=== PATIENT | female | born 1975 | race Hispanic/Latino ===

== ENCOUNTER 2021-07-04 14:51 | Inpatient (IN) | payer SELFPAY ==
[~2021-07-04 14:51] MED LIST: Iopamidol 370 76% 100 ML VIAL ONE; Magnevist 469MG/ML 20 ML VIAL ONE
[2021-07-04 15:58] LABS: #Basophils 0.1 thou/uL (0.0-0.2); #Eosinphils 0.7 thou/uL (0.0-0.7); #Lymphocytes 2.8 thou/uL (1.20-3.40); #Monocytes 0.8 thou/uL (0.11-0.59); #Neutrophils 7.1 thou/uL (1.40-6.50); %Basophils 0.6 % (0.0-1.0); %Lymphocytes 24.7 % (21.0-51.0); %Monocytes 6.8 % (0.0-10.0); %Neutrophils 61.9 % (42.0-75.0); Hemoglobin 10.3 g/dL (12.0-16.0); Mean Corpuscular HGB CONC 30.7 g/dL (32.0-36.0); Mean Corpuscular Hemoglobin 19.1 pg (27.0-31.0); Mean Corpuscular Volume 62.3 fL (78.0-98.0); Mean Platelet Volume 9.8 fL (7.4-10.4); Platelet Count 483 thou/uL (130-400); RBC Distribution Width 15.6 % (11.5-14.5); Red Blood Cell (RBC) Count 5.39 mill/uL (4.20-5.40); White Blood Cell (WBC) Count 11.5 thou/uL (4.8-10.8)
[2021-07-04 16:13] LABS: ALT (SGPT) 23 U/L (8-55); AST (SGOT) 18 U/L (5-34); Albumin 4.3 g/dL (3.5-5.0); Alkaline Phosphatase 71 U/L (40-110); Anion Gap 13 mmol/L (10-20); BUN (Urea Nitrogen) 10 mg/dL (7.0-18.7); Bilirubin, Total 0.2 mg/dL (0.2-1.2); Calc. Creatinine Clearance 0 mL/min (70-130); Calcium 9.4 mg/dL (7.8-10.44); Carbon Dioxide 22 mmol/L (22-29); Chloride 103 mmol/L (98-107); Globulin 4.4 g/dL (2.4-3.5); Glucose 92 mg/dL (70-105); Protein, Total 8.7 g/dL (6.0-8.3); Sodium 134 mmol/L (136-145)
[2021-07-04 16:16] LABS: Anisocytosis SLIGHT = 6-15 cells (100X) (0-5/hpf); Hypochromia SLIGHT = 6-15 cells (100X) (0-5/hpf); MDiff Complete? YES; Microcytosis SLIGHT = 6-15 cells (100X) (0-5/hpf); Ovalocytes SLIGHT = 2-5 cells (100X) (0-1/hpf); Platelet Morphology Comment Appears Increased; Polychromasia SLIGHT = 2-3 cells (100X) (0-2/hpf); Reflex for Review?? YES; Stomatocytes SLIGHT = 2-5 cells (100X) (0-1/hpf)
[2021-07-04] MEDS ORDERED: Metoclopramide 10 MG/10 ML UDCUP ONE (18:06)
[2021-07-04] MEDS ORDERED: Ketorolac Tromethamine 30 MG/ML VIAL ONE (18:06)
[2021-07-04] MEDS ORDERED: Metoclopramide HCl 10 MG/2 ML VIAL ONE (18:07)
[2021-07-04] MEDS ORDERED: methylPREDNISolone Sod Succ 1 GM in Sodium Chloride 0.9% 250 ML 250 ML IVPB SCH (20:00)
[2021-07-04] MEDS ORDERED: Ondansetron PF 4 MG/2 ML Vial IVP PRN (21:15)
[2021-07-04] MEDS ORDERED: Acetaminophen 325 MG TAB PO PRN (21:15)
[2021-07-04] MEDS ORDERED: Ondansetron ODT 4 MG TAB SL PRN (21:15)
[2021-07-04] MEDS ORDERED: Acetaminophen 650 MG Suppository PR PRN (21:56)
[2021-07-04 22:27] VITALS: BMI 33.4
[2021-07-05 00:10] LABS: Iron 17 ug/dL (50-170); Iron Binding Capacity, Total 551 mcg/dL (265-497)
[2021-07-05] MEDS ORDERED: Iron, Sodium Ferric Gluconate 250 MG in Sodium Chloride 0.9% 250 ML 250 ML IVPB SCH (01:00)
[2021-07-05 05:43] LABS: #Eosinphils 0.2 thou/uL (0.0-0.7); #Monocytes 0.1 thou/uL (0.11-0.59); #Neutrophils 6.3 thou/uL (1.40-6.50); %Eosinophils 2.3 % (0.0-10.0); %Lymphocytes 12.9 % (21.0-51.0); %Neutrophils 83.8 % (42.0-75.0); Hemoglobin 10.4 g/dL (12.0-16.0); Mean Corpuscular HGB CONC 31.2 g/dL (32.0-36.0); Mean Corpuscular Hemoglobin 19.7 pg (27.0-31.0); Mean Corpuscular Volume 63.1 fL (78.0-98.0); Platelet Count 412 thou/uL (130-400); RBC Distribution Width 15.6 % (11.5-14.5); Red Blood Cell (RBC) Count 5.29 mill/uL (4.20-5.40); White Blood Cell (WBC) Count 7.5 thou/uL (4.8-10.8)
[2021-07-05 06:19] LABS: Anion Gap 12 mmol/L (10-20); BUN (Urea Nitrogen) 17 mg/dL (7.0-18.7); Calc. Creatinine Clearance 95 mL/min (70-130); Calcium 9.3 mg/dL (7.8-10.44); Carbon Dioxide 20 mmol/L (22-29); Chloride 107 mmol/L (98-107); Glucose 157 mg/dL (70-105); Potassium 4.4 mmol/L (3.5-5.1); Sodium 135 mmol/L (136-145)
[2021-07-05] MEDS ORDERED: FLU VACC QS2021-22(6MOS UP)/PF 60 MCG/0.5 ML SYRINGE IM ONE (09:00)
[2021-07-05] MEDS: Enoxaparin Sodium 40 MG/0.4 ML SYRINGE SC SCH (09:11)
[2021-07-05] MEDS ORDERED: Vancomycin 1 GM in Premix Bag 1 BAG IVPB SCH (11:00)
[2021-07-05] MEDS ORDERED: cefTRIAXone\\ROCEPHIN 1 GM in Sodium Chloride 0.9% 100 ML IVPB SCH (12:00)
[2021-07-05] MEDS: methylPREDNISolone Sod Succ 1 GM in Sodium Chloride 0.9% 250 ML 250 ML IVPB SCH (12:27)
[2021-07-05 13:15] LABS: SARS-CoV-2 PCR by NAA Not Detected (NotDetected)
[2021-07-05] MEDS ORDERED: Ferrous Sulfate 325 MG TAB PO SCH (14:30)
[2021-07-05 15:02] LABS: Bacteria/HPF 4+ HPF (None Seen); Bilirubin Negative (Negative); Blood, Urine Trace (Negative); Clarity Turbid (Clear); Glucose, Urine (Dipstick) 50 mg/dL (Negative); Ketone, Urine Trace mg/dL (Negative); Leukocyte 500 Leu/uL (Negative); Nitrite Negative (Negative); Protein, Urine (Dipstick) 20 mg/dL (Neg-Trace); RBC/HPF 0-3 HPF (0-3); Urobilinogen Normal mg/dL (Less than 2); WBC/HPF Greater than 50 HPF (0-3); pH, Urine 5.5 (5.0-9.0)
[2021-07-05 15:04] LABS: Urine Culture Reflex No No
[2021-07-05] MEDS: cefTRIAXone\\ROCEPHIN 1 GM in Sodium Chloride 0.9% 100 ML IVPB SCH (15:18)
[2021-07-05] MEDS: Ferrous Sulfate 325 MG TAB PO SCH (17:02)
[2021-07-05] MEDS: Vancomycin 1 GM in Premix Bag 1 BAG IVPB SCH (17:03)
[2021-07-05] MEDS ORDERED: methylPREDNISolone Sod Succ 1 GM in Sodium Chloride 0.9% 250 ML 250 ML IVPB SCH (21:00)
[2021-07-05] MEDS: Acetaminophen 325 MG TAB PO PRN (21:11)
[2021-07-06] MEDS: Vancomycin 1 GM in Premix Bag 1 BAG IVPB SCH ×2 (06:19→18:22)
[2021-07-06 09:02] LABS: Hemoglobin A1c 5.4 % (4.0-6.0)
[2021-07-06] MEDS ORDERED: Iopamidol 370 76% 100 ML VIAL ONE (09:41)
[2021-07-06] MEDS: Ferrous Sulfate 325 MG TAB PO SCH ×2 (10:15→18:23)
[2021-07-06] MEDS: Enoxaparin Sodium 40 MG/0.4 ML SYRINGE SC SCH (10:42)
[2021-07-06] MEDS: methylPREDNISolone Sod Succ 1 GM in Sodium Chloride 0.9% 250 ML 250 ML IVPB SCH (10:43)
[2021-07-06 10:52] LABS: INR-International Normal Ratio 1.1; PTT 28.2 sec (22.9-36.1); Prothrombin Time 14.5 sec (12.0-14.7)
[2021-07-06] MEDS ORDERED: Sodium Chloride 0.9% 500 ML IV SCH (11:00)
[2021-07-06 11:28] LABS: HIV (1/2) Antibody/Antigen Non-Reactive (NonReactive)
[2021-07-06 12:30] LABS: ANA Symphony (Qualitative) Negative (Negative); ANA Symphony (Quantitative) 0.3 Ratio (< 0.7 Negative); dsDNA IgG Antibody 0.9 IU/mL (<10 Negative)
[2021-07-06 13:23] LABS: Bilirubin Negative (Negative); Blood, Urine Trace (Negative); Clarity Turbid (Clear); Glucose, Urine (Dipstick) Normal (Negative); Ketone, Urine Negative (Negative); Leukocyte 500 Leu/uL (Negative); Nitrite Negative (Negative); Protein, Urine (Dipstick) 20 mg/dL (Neg-Trace); RBC/HPF 0-3 HPF (0-3); Specific Gravity, Urine 1.032 (1.002-1.036); Urobilinogen Normal mg/dL (Less than 2)
[2021-07-06 13:28] LABS: Syphilis Antibody Nonreactive (Nonreactive); Syphilis Antibody Index 0.04 S/CO (<1.00 Non-Reactive)
[2021-07-06 13:31] LABS: Bacteria/HPF 2+ HPF (None Seen); Urine Culture Reflex No No
[2021-07-06 15:18] LABS: CSF, Glucose 62 mg/dl (40-70); CSF, Protein 29 mg/dL (15-40)
[2021-07-06 16:13] LABS: CSF Source CSF; Clarity Clear (Clear); Tube # 4
[2021-07-06] MEDS: cefTRIAXone\\ROCEPHIN 1 GM in Sodium Chloride 0.9% 100 ML IVPB SCH (16:20)
[2021-07-07] MEDS: Vancomycin 1 GM in Premix Bag 1 BAG IVPB SCH (05:42)
[2021-07-07] MEDS ORDERED: PROPOFOL 20 ML ONE (08:13)
[2021-07-07] MEDS: Ferrous Sulfate 325 MG TAB PO SCH ×2 (10:35→18:09)
[2021-07-07] MEDS ORDERED: AcetaZOLAMIDE 250 MG TAB PO SCH (11:30)
[2021-07-07 11:57] LABS: PTT 24.6 sec (22.9-36.1); Prothrombin Time 13.6 sec (12.0-14.7)
[2021-07-07 11:58] LABS: D-Dimer Test 2.23 *mcg/mL (0.27-0.43)
[2021-07-07 12:18] LABS: Factor VIII Test 369.1 % ACTIVE (56-157)
[2021-07-07] MEDS: Acetaminophen 325 MG TAB PO PRN (12:39)
[2021-07-07] MEDS: cefTRIAXone\\ROCEPHIN 1 GM in Sodium Chloride 0.9% 100 ML IVPB SCH (15:32)
[2021-07-07 16:28] LABS: Vitamin B12 Greater than 2000 pg/mL (211-911)
[2021-07-07] MEDS: AcetaZOLAMIDE 250 MG TAB PO SCH (20:40)
[2021-07-08] MEDS ORDERED: predniSONE 20 MG TAB PO SCH (07:45)
[2021-07-08 07:55] VITALS: BP 115/67; TEMP 98.4
[2021-07-08] MEDS ORDERED: Cefdinir 300 MG CAP PO SCH ×2 (09:15→21:00)
[2021-07-08] MEDS: AcetaZOLAMIDE 250 MG TAB PO SCH (09:39)
[2021-07-08] MEDS: Ferrous Sulfate 325 MG TAB PO SCH (09:39)
[2021-07-10 17:11] LABS: Cardiolipin IgA Ab 2.8 APL-U/mL (<14 Negative); Cardiolipin IgG Ab 1.7 GPL-U/mL (<10 Negative); Cardiolipin IgM Ab 2.7 MPL-U/mL (<10 Negative); EliA APS New Method **** NEW METHOD ****
[2021-07-11 15:15] LABS: Cytoplasmic (C-ANCA) <1:20 titer (Neg:<1:20); Myeloperoxidase AutoAbs <9.0 U/mL (0.0-9.0); Perinuclear (P-ANCA) <1:20 titer (Neg:<1:20); Proteinase-3 AutoAbs Less than 3.5 U/mL (0.0-3.5)
[2021-07-12 16:15] LABS: CSF IgG Index 0.6 (0.0-0.7); CSF IgG Synthesis Rate -1.5 mg/day (-9.9 TO +3.3); IgG/Alb CSF 0.23 (0.00-0.25)
[2021-07-12 19:37] LABS: Methylmalonic Acid 128 nmol/L (0-378)
[2021-07-13 10:29] LABS: Protein C Activity 103 % (78-152)
[2021-07-13 12:46] LABS: HEX PHOS LA Tube 1 35.3 SEC; HEX PHOS LA Tube 2 33.6 SEC; Hexagonal Phospholipid Neut 1.7 SEC (0-8.0)
== END 2021-07-08 12:33 | disposition home or self-care (01) | DRG 125 ==
LOC: ERS 14:51 → NEURO 20:43 → INTOOBSV 20:43 → OBSVTOIN 07-05 17:58
PROVIDERS: ADMIT Student in an Organized Health Care Education/Training Program; ATTEND Internal Medicine
PROC: 009U3ZX Drainage of Spinal Canal, Percutaneous Approach, Diagnostic (ICD-10-PCS; principal; 2021-07-06)
PROC: B01B1ZZ Fluoroscopy of Spinal Cord using Low Osmolar Contrast (ICD-10-PCS; 2021-07-06)
PROC: B24BZZ4 Ultrasonography of Heart with Aorta, Transesophageal (ICD-10-PCS; 2021-07-08)
DX: H35.63 Retinal hemorrhage, bilateral (principal); H46.9 Unspecified optic neuritis; N39.0 Urinary tract infection, site not specified; E87.1 Hypo-osmolality and hyponatremia; Z20.822 Contact with and (suspected) exposure to COVID-19; Z23 Encounter for immunization; D50.9 Iron deficiency anemia, unspecified; N92.0 Excessive and frequent menstruation with regular cycle; R70.0 Elevated erythrocyte sedimentation rate; I70.0 Atherosclerosis of aorta; I08.1 Rheumatic disorders of both mitral and tricuspid valves; Z79.899 Other long term (current) drug therapy; Z79.52 Long term (current) use of systemic steroids
CPT/HCPCS: 36415; 62270; 70450; 70496; 70498; 70544; 70553; 71045; 71275; 80048; 80053; 81001; 81374; 82040; 82042; 82607; 82728; 82746; 82784; 82945; 83036; 83090; 83520; 83540; 83550; 83916; 83921; 84157; 84443; 84484; 85025; 85060; 85240; 85300; 85303; 85305; 85307; 85379; 85598; 85610; 85652; 85730; 86037; 86038; 86140; 86147; 86225; 86780; 87040; 87070; 87086; 87205; 87389; 89051; 90471; 90686; 93005; 93306; 93312; 96372; 96375; A9579; G0008; G0378; J0696; J1650; J1885; J2405; J2704; J2765; J2916; J2930; J3370; J3490; J7030; J7050; J7512; Q9967; U0003; U0005